=== PATIENT | female | born 1945 | race Caucasian/White ===

== ENCOUNTER 2016-12-21 09:30 | Inpatient (IN) | payer MEDICARE, OTHER ==
[~2016-12-21] VITALS: Ht 175.3 cm; Wt 63.9 kg
--- NOTE | ~2016-12-21 | ECH ---
Transthoracic Echocardiography Report (TTE) Demographics Patient Name MESERET MCDOWELL Date of Study 12/21/2016 Patient Number [id number] Visit Number [id number] Date of 1945 Room Number 301 Accession Number [id number] Gender Female Age 71 year(s) Referring King Richmond Chiu MD Volunteer Services Supervisor Stacie Casper [facility] Physician Kirill Yu MD Physician Interpreting Marline KAY [facility] Physician Petey Supervising Ordering Physician Kirill Yu MD, MD/P Nurse Stress Graduate Advisor Conclusions Contractility Score Summary Normal Left Ventricular contractility was noted. Summary Technically adequate exam. The estimated left ventricular ejection fraction is 65%. Mild left ventricular hypertrophy. Diastolic assessment reveals Grade I diastolic dysfunction. The left atrium is at upper limits of normal size by LA volume index measurement. The right atrium is mild to moderately dilated. Mild mitral regurgitation by color Doppler. The mitral regurgitation jet is anteriorly directed. Tricuspid regurgitation is eccentric and at least mild-moderate. There is moderate pulmonary hypertension. The pulmonary pressure (RVSP) is 46 mmHg. Recommendation The patient will be given the results of this study by the physician who ordered the exam. Procedure Type of Study TTE procedure:Echo Complete SF. Procedure Date Date: 12/21/2016 Start: 01:37 PM Technical Quality: Adequate visualization Indications:Shortness of breath, Elevated Troponin, Cardiomegaly and Pleural effusion. Appropriate Use Criteria: 9 Height: 66 inches Weight: 165.35 pounds BSA: 1.84 m Rhythm: Sinus with bundle branch block HR: 87 bpm BP: 164/96 mmHg M-Mode/2D Measurements LV Diastolic Dimension: 4.15 cm LV Systolic Dimension: 2.41 cm LV Septum Diastolic: 1.19 cm LV PW Diastolic: 1.24 cm AO Root Dimension: 2.66 cm Cardiac Output: 6.24 l/min LA Dimension: 3.79 cm Cardiac Index: 3.39 l/min*m RV Diastolic Dimension: 3.4 cm LA volume index: 34 ml/m LVOT: 1.95 cm LVOT VTI: 24.01 cm RV Base: 3.56 cm LV Stroke volume: 71.67 ml RV Mid: 2.4 cm LV Stroke volume index: 38.95 ml/m RV Length: 5.09 cm Doppler Measurements AV Peak Velocity: 1.3 m/s MV Peak E-Wave: 0.52 m/s AV Peak Gradient: 6.76 mmHg MV Peak A-Wave: 0.86 m/s AV Mean Gradient: 3.24 mmHg MV E/A Ratio: 0.61 LVOT Peak Velocity: 1.12 m/s MV P1/2t: 42.5 msec AV Area (Continuity):3 cm MV Deceleration Time: 161.6 msec TR Velocity:3.21 m/s MV Area (PHT): 5.18 cm TR Gradient:41.23 mmHg PV Peak Velocity: 0.86 m/s Estimated RAP:5 mmHg PV Peak Gradient: 2.93 mmHg Estimated RVSP: 46 mmHg Estimated PASP: 46.23 mmHg RA Area: 22.61 cm Findings Left Ventricle The left ventricle is normal in size . Mild left ventricular hypertrophy. Diastolic assessment reveals Grade I diastolic dysfunction. Right Ventricle Normal right ventricle structure and function. Left Atrium The left atrium is at upper limits of normal size by LA volume index measurement. Right Atrium The right atrium is mild to moderately dilated. Mitral Valve Normal mitral valve structure and function. Mild mitral regurgitation by color Doppler. The mitral regurgitation jet is anteriorly directed. Aortic Valve Normal aortic valve structure and function. Tricuspid Valve Normal tricuspid valve structure and function. Tricuspid regurgitation is eccentric and at least mild-moderate. There is moderate pulmonary hypertension. The pulmonary pressure (RVSP) is 46 mmHg. Pulmonic Valve Normal pulmonic valve structure and function. Pericardial Effusion No evidence of pericardial effusion. Miscellaneous Visualized portions of the aortic root and ascending aorta appear normal in size. Contractility Score LV regional wall motion:(0-Non visualized 1-Normal 2-Hypokinesis 3-Akinesis 4-Dyskinesis 5-Aneurysm) Signature
--- NOTE | 2016-12-23 07:11 | CO ---
ADMIT: 12/21/2016 RM/LOC: 301 [facility] MR#: [id number] [address] MESERET MCDOWELL [address] [place] [address] Consultation SEX: F AGE: 71 : 1945 DATE OF CONSULTATION: 12/21/2016 ATTENDING PHYSICIAN: Marino Roy CONSULTING PHYSICIAN: Petey Garcia MD REASON FOR CONSULTATION: Respiratory failure. HISTORY OF PRESENT ILLNESS: Meseret Mcdowell is a 71-year-old female with a history of COPD and ongoing tobacco abuse. She was brought into the emergency room this morning about 9:30, really complained of periumbilical pain. She has had an ultrasound of the abdomen for that, which has been unrevealing. As the day progressed, she became increasingly short of breath and was actually fairly obtunded earlier. She was placed on BiPAP for a pH of 7.22 and a pCO2 of 86. Chest x-ray reveals right lower lobe pneumonia with congestive changes and she has seen Cardiology and been given some Lasix. The patient is not able to provide any history at the present time. PAST MEDICAL HISTORY: Includes ongoing tobacco abuse, hypertension, COPD. ALLERGIES: NONE KNOWN. SOCIAL HISTORY: She has essentially smoked her entire life and she continued up until the admission to the hospital. FAMILY HISTORY: Significant for coronary artery disease. CURRENT MEDICATIONS: Include: 1. Spiriva. 2. Aspirin. 3. Toprol. 4. Pepcid. 5. Rocephin. 6. Tylenol. 7. Lasix. REVIEW OF SYSTEMS: Unable to be obtained as the patient is not responsive at this time. PHYSICAL EXAMINATION: VITAL SIGNS: Blood pressure 149/78, heart rate 90, respiratory rate 12, she is afebrile. GENERAL: The patient is sleepy, but she will awaken to command. HEENT: Pupils are reactive. NECK: Supple. HEART: Regular rate and rhythm. LUNGS: Notable for wet crackles throughout. ABDOMEN: Soft. There is no rigidity and no tenderness on abdominal exam. EXTREMITIES: 2+ edema bilaterally. MUSCULOSKELETAL: Deferred. ADMIT: 12/21/2016 RM/LOC: 301 [facility] MR#: [id number] [address] MESERET MCDOWELL [address] [place] [address] Consultation SEX: F AGE: 71 : 1945 NEUROLOGIC: Notable for being somnolent at this time. LABORATORY DATA: PH 7.23, pCO2 is 86, PO2 is 79. White count 6, hemoglobin 17, hematocrit 50, platelets are 329. Sodium 129, potassium 4.9, chloride 90, CO2 of 37, BUN is 15, creatinine is 0.9. Troponin is 1.2. BNP is 3700. IMAGING: Chest x-ray, personally reviewed, reveals right lower lobe infiltrate. Cardiomegaly and some congestive changes. There is at least a small effusion on the right as well. IMPRESSION: 1. Acute congestive heart failure, unknown if systolic or diastolic, but we are waiting on an echo. 2. Right lower lobe community-acquired pneumonia. 3. Hypercapnic respiratory failure. 4. Ongoing tobacco abuse. 5. Abdominal pain. 6. Non ST-elevation myocardial infarction. 7. Polycythemia. PLAN/RECOMMENDATIONS: At this point, I am going to cautiously continue BiPAP. I certainly think it is possible that she will require endotracheal intubation. I am going to broaden antibiotic coverage for an ICU pneumonia. I do agree with Lasix as prescribed by Dr. Hughes. I think her pulmonary exam is very wet. We will place an arterial line because we are going to be taking multiple blood gases. We will check a flu swab and have a PICC line placed as well. I am going to start her on nebulizers and steroids as well. She is critically ill at this time and further care will be dictated by her hospital course. Petey Garcia MD/ jimena JOB #: [id number] CC: Marino Roy, Attending Physician Marino Roy, Family Physician
--- NOTE | 2016-12-27 10:31 | ER ---
ADMIT: 12/21/2016 RM/LOC: 301 [facility] MR#: [id number] [address] MESERET MCDOWELL [address] [place] [address] Emergency Room Report SEX: F AGE: 71 : 1945 DATE: 12/21/2016 CHIEF COMPLAINT: Today is shortness of breath and abdominal pain. HISTORY OF PRESENT ILLNESS: This is a pleasant 71-year-old, white female, who comes to us with about 2 weeks duration of increasing shortness of breath and abdominal pain. The patient states she was in to see Dr. Hernandez and got a pneumococcal vaccine about 14 days ago and ever since then, she has had increasing shortness of breath. States she has been using some Aleve and ibuprofen for pain. She has been dealing with some epigastric burning pain which she states feels like stomach ulcers that she has had in the past. States she has not been taking her hydrochlorothiazide as her script ran out. Admits to some nausea, diarrhea, loss of appetite, and chest pains, primarily epigastric radiating up. PAST MEDICAL HISTORY: Hypertension and COPD. She is on multiple inhalers for COPD. Has no known cardiac disease. No history of heart failure, was hospitalized in 2006 for a cardiac rule out, which was unremarkable. SOCIAL HISTORY: She does smoke about 2 cigarettes per day. ALLERGIES: HAS AN ALLERGY TO EGG WHITES. COURSE IN THE EMERGENCY ROOM: The patient was initially brought back to the room by nursing, found to be saturating 55% on room air. She was placed on nasal cannula and a non-rebreather until she was back in the 90s. The patient was seen and examined. She was in moderate amount of distress. She was alert. She does have bilateral wheezes with some faint rhonchi in the right lower lung base. Heart is regular. No gallop, murmur, or rub. She does have some epigastric tenderness. She is slightly diaphoretic. She has 4+ pitting edema in the lower extremities bilaterally. We did give her Zofran 4 mg IV, Lasix 40 IV as well as Solu-Medrol 125 mg IV. Blood pressures in the 200s, she was given 0.4 of nitroglycerin sublingually, brought her pressures down to the 170s. She was also ran through the sepsis routine. Laboratory shows sodium 129, potassium 4.2, CO2 of 37, BUN 15, creatinine 0.9, albumin is 1.9. Liver enzymes normal. She does have an elevated troponin at 1.180 and elevated BNP at 3758. Lactic was 0.9. White count 5.9, hemoglobin 16.9, hematocrit 50.2, and platelets 329. Urine has 3+protein, but no sign of acute infection. EKG was obtained, with no ST-T or Q wave abnormalities. I did phone Dr. Roy for city call who will admit this patient. ADMIT: 12/21/2016 RM/LOC: 301 [facility] MR#: [id number] [address] MESERET MCDOWELL [address] [place] [address] Emergency Room Report SEX: F AGE: 71 : 1945 IMPRESSION: 1. Elevated troponin. 2. Acute respiratory failure. 3. Community-acquired pneumonia. 4. Chronic obstructive pulmonary disease. 5. Congestive heart failure. 6. Epigastric pain. 7. History of hypertension. 8. Tobacco abuse. DISPOSITION: The patient will be admitted to the ICU in the care of Dr. Roy. She was discharged to the ICU in guarded condition. MARIELLA Duenas / Wily Arechiga MD / modl JOB #: [id number] CC: Marino Roy MD, Attending Physician Marino Roy MD, Family Physician
--- NOTE | 2016-12-27 15:08 | CO ---
ADMIT: 12/21/2016 RM/LOC: 301 [facility] MR#: [id number] [address] MESERET MCDOWELL [address] [place] [address] Consultation SEX: F AGE: 71 : 1945 DATE OF CONSULTATION: 12/21/2016 ATTENDING PHYSICIAN: Marino Roy CONSULTING PHYSICIAN: Dafne Hughes MD REASON FOR CONSULTATION: Abnormal troponin. HISTORY OF PRESENT ILLNESS: Ms. Mcdowell is a 71-year-old white female, who is a former patient of [facility]. Her mental status right now is somewhat compromised, so she is unable to give a good history. History is obtained by her son. He notes that over the past few days, she has been more orthopneic, complaining of shortness of breath and edema. She has been denying any chest pain. He notes she has been coughing. She does continue to smoke. PAST MEDICAL HISTORY: Pertinent for COPD, history of abnormal EKG portion of a stress test, tobacco use, GERD, and hypertension. MEDICATIONS: She is currently on Rocephin, she was given IV Lasix in the ER. ALLERGIES: LATEX. FAMILY HISTORY: There is no family history of premature coronary artery disease. Father with a bypass graft in his 50s. Son with a stent, he is a patient of [facility]. SOCIAL HISTORY: She is . Two children. A son is present. She is a smoker. Retired. REVIEW OF SYSTEMS: Unable to obtain due to her altered mental status. PHYSICAL EXAMINATION: VITAL SIGNS: Her blood pressure is 149/78 with a pulse rate in the 90s. Her temp is 97.6. Her weight today is 160 pounds. GENERAL: She is a white female, lethargic, slow to arouse. NECK: Shows brisk carotid upstrokes. Minimal JVD. HEART: Regular rhythm and rate and distant. LUNGS: Distant breath sounds. ABDOMEN: Soft, nontender, nondistended. Bowel sounds are present. EXTREMITIES: Show no cyanosis, clubbing with 2+ pretibial edema bilaterally. MUSCULOSKELETAL AND NEUROLOGIC EXAM: Unable to be performed because of her altered mental status. ADMIT: 12/21/2016 RM/LOC: 301 [facility] MR#: [id number] [address] MESERET MCDOWELL [place] [address] [place] [address] Consultation SEX: F AGE: 71 : 1945 LABORATORY AND ANCILLARY DATA: Show a pH of 7.27, pCO2 of 87, and pO2 of 82. Sodium is 129, potassium 4.9, BUN of 15, and creatinine is 0.9. CK is 171, MB 3.7, troponin 1.18. ProBNP is 3758. White blood cell count is 5.9, hemoglobin 16.9, with a platelet count of 329,000. EKG shows sinus rhythm. ASSESSMENT/PLAN: Acute congestive heart failure, undetermined etiology. Hypoxic respiratory failure, hypercapnia, abnormal troponin, chronic obstructive pulmonary disease, tobacco use. Suspect abnormal troponin likely due to acidosis and hypoxia, question even pneumonia and COPD exacerbation. We will await echocardiogram results, but we will give an additional 80 mg IV Lasix now. Pulmonary was consulted. We will await their recommendations. Dafne Hughes MD/ jimena JOB #: [id number] CC: Marino Roy, Attending Physician Marino Roy, Family Physician
[2016-12-30] MEDS ORDERED: PRILOSEC DPS20 MG PO (13:34)
[2016-12-30] MEDS ORDERED: ASA CHILDREN'S81 MG PO (13:34)
[2016-12-30] MEDS ORDERED: HYDROCHLOROTHIA25 MG PO (13:34)
[2016-12-30] MEDS ORDERED: DAILY MULTIPLE1 EAC1 PO (13:34)
[2016-12-30] MEDS ORDERED: TOPROL XL100 MG PO (13:34)
[2016-12-30] MEDS ORDERED: PROAIR RESPICL90 MCG IH (13:35)
[2016-12-30] MEDS ORDERED: SPIRIVA18 MCG PO (13:35)
[2016-12-30] MEDS ORDERED: PROVENTIL2.5 MG/3 M IH (13:36)
[2016-12-30] MEDS ORDERED: DELTASONE DPS10 MG PO (13:36)
[2016-12-30] MEDS ORDERED: MAG-OX400 MG PO (13:36)
[2016-12-30] MEDS ORDERED: LEVAQUIN DPS500 MG PO (13:36)
[2016-12-30] MEDS ORDERED: CARDIZEM CD180 MG PO (13:37)
--- NOTE | 2017-01-24 10:33 | HP ---
ADMIT: 12/21/2016 RM/LOC: 301 [facility] MR#: [id number] [address] MESERET MCDOWELL [address] [place] [address] History and Physical SEX: F AGE: 71 : 1945 DATE OF SERVICE: CHIEF COMPLAINT: Weakness. CLINICAL HISTORY: Meseret came into the emergency room, brought in by her son with a history of progressive weakness over the last 3 weeks. She states that this all commenced with the onset of a pneumonia vaccination that she got at [facility]. This was after she apparently called in for some medication through her regular doctor, Dr. Shani Hernandez. Subsequent to that time, she felt like she went downhill. She started noticing increasing pedal edema, increasing work of breathing and appetite tailed off. Associated with such was some intermittent bouts of diarrhea that she has had off and on through life. She had not eaten much the last couple of 3 days, had stopped taking her medications and noticed increasing edema and could not get up very much. Her son brought her to the emergency room. PAST MEDICAL HISTORY: Includes no prior operations. She had a prior evaluation several years ago. She cannot remember exactly when she underwent stress test. She reports that all of those tests were negative. She has been a lifelong smoker. She has had episodes of bronchitis. She is on nebulizer treatments at home, but has not been on any steroids and has continued to smoke up through this morning. She was evaluated in the emergency room, where a chest x-ray was reported as pneumonia. The emergency room doctor felt this was most consistent with congestive failure and has given her diuretics, but in my review, she clearly has a right lower lobe pneumonia concomitantly. ALLERGIES: NONE KNOWN WITH THE EXCEPTION OF POSSIBLE PNEUMOVAX. MEDICATIONS: Please see current list including nebulized treatments with: 1. Ventolin. 2. Spiriva. FAMILY HISTORY: Father had at 58 of coronary artery disease. Mother with breast cancer. She has a daughter with breast cancer. REVIEW OF SYSTEMS: She has not had any hemoptysis. She has never had any history of deep vein thrombosis or pulmonary emboli. Denies any specific chest pain nor has she had any other pain at all. In fact, denies any discomfort. She noticed edema involving her legs, but has not had any specific muscular weakness, just generalized weakness from her illness. She has noticed that she is itching a great deal and has had broken out in an eczema-type rash on her upper extremities. PHYSICAL EXAMINATION: GENERAL: Reveals a white female who is able to give ADMIT: 12/21/2016 RM/LOC: 301 [facility] MR#: [id number] [address] MESERET MCDOWELL [address] [place] [address] History and Physical SEX: F AGE: 71 : 1945 reasonable history. There is some cyanosis to the lips and finger tips. Ventimask is in place. HEAD AND NECK: Otherwise unremarkable. HEART: Regular with a pulse rate at 100. ABGs have been ordered, but are not done yet. LUNGS: Coarse rhonchi throughout and rales at the bases bilaterally. ABDOMEN: Benign. EXTREMITIES: Showed 3+ pedal edema. She is able to give a coherent history and has no focal neurological findings. LABORATORY AND IMAGING DATA: Chest X-RAY demonstrates right lower lobe pneumonia and congestive heart failure. BNP is elevated significantly. The rest of her chemistry profile is unremarkable except for some mild hyponatremia at 129. EKG shows incomplete left bundle branch block. IMPRESSION: 1. Pneumonia, right lower lobe. 2. Congestive heart failure. 3. Elevated troponin. 4. Mild hypercalcemia. 5. Mild hyponatremia. 6. Family history of coronary artery disease. 7. Family history of breast cancer. 8. Smoking history. 9. History of prior cardiac evaluation with a negative stress test. TREATMENT: Certainly, she is at high risk for progressive respiratory failure. This coupled with her elevated troponin. Certainly dictates intensive care treatment and evaluation. Likewise, set of ABGs will be necessary as I suspect she is a CO2 retainer. We will see how this evolves, but over the last couple of days, she has gotten quite a bit weaker, had increasing edema and obviously would not be here except she is clinically deteriorating. Marino Roy MD/ jimena JOB #: [id number] CC: Marino Roy, Attending Physician Marino Roy, Family Physician
--- NOTE | 2017-01-31 13:34 | DS ---
ADMIT: 12/21/2016 RM/LOC: 630 [facility] MR#: [id number] [address] MESERET MCDOWELL [address] [place] [address] Discharge Summary SEX: F AGE: 71 : 1945 ADMISSION DATE: 12/21/2016 DISCHARGE DATE: 12/29/2016 DISMISSAL DIAGNOSES: 1. Pneumonia, right lower lobe. 2. Respiratory failure. 3. Advanced chronic obstructive lung disease. 4. Paroxysmal atrial fibrillation. 5. Hypertension. 6. Xea-FC-oxgccakij myocardial infarction. 7. Cor pulmonale. 8. Hypercalcemia and hyponatremia, resolved. 9. Family history of coronary artery disease. 10.Chronic smoking. CLINICAL HISTORY: Meseret Mcdowell came in with what she describes as a 6 weeks illness commencing with a pneumonia vaccination at one of the local pharmacies. She blamed this upon her progressive respiratory failure, but when she presented to the emergency room, she could give a good history but obviously was very short of breath and had evidence of cyanosis. She had right lower lobe pneumonia, marked edema, cor pulmonale, and CO2 retention. In spite of IV Solu-Medrol and respiratory support, she slowly and steadily progressed to respiratory failure. Initially treated with BiPAP and ultimately intubated and treated with ventilator therapy. Cultures of blood, urine, and sputum all showed no growth or normal agapito. She had an elevated troponin upon presentation consistent with a non STEMI infarct. She has a strong family history of coronary artery disease and has risk factors, but previously had a negative stress test. EKGs were unremarkable, but she developed paroxysmal atrial fibrillation with short burst requiring Cardizem. Throughout her hospital stay, she was followed by Cardiology, Pulmonary Medicine, and myself. Post extubation, she made an uneventful recovery, but obviously has a chronic, long-standing obstructive bronchitis related to her smoking and a harsh, persistent cough. She required oxygen upon dismissal, will continue with her home nebulizer treatment as well as prednisone at 10 mg p.o. b.i.d. to be tapered at a later date and to finish Levaquin 500 mg daily for 7 additional days for her right lower lobe pneumonia. The day of dismissal, her BNP was normal. Her chemistries were normal. Her CBC showed a hemoglobin of 14.8, hematocrit of 44, white count of 13.3, all quite stable. A chest x-ray was rotated and poor technique, but suggested some persistent right lower lobe atelectatic changes. ADMIT: 12/21/2016 RM/LOC: 630 [facility] MR#: [id number] [address] MESERET MCDOWELL [address] [place] [address] Discharge Summary SEX: F AGE: 71 : 1945 MEDICATIONS UPON DISMISSAL: Include: 1. O2, 2 L nasal prong at bedtime and at rest and 3 L with activity by portable oxygen. 2. Nebulized treatment with albuterol t.i.d. 3. Spiriva 18 mcg daily. 4. Toprol 100 mg p.o. daily. 5. Cardizem CD 180 mg daily. 6. Multivitamin daily. 7. Mag-Ox 400 mg b.i.d. 8. Levaquin 500 mg daily for 7 days. 9. HydroDIURIL 25 mg daily. 10.Prednisone 10 mg b.i.d. 11.Aspirin 81 mg daily. 12.Ventolin HFA 1 puff q.i.d. p.r.n. 13.Omeprazole 40 mg daily. She reluctantly accepted her home oxygen prescription. She will see Dr. Shani Hernandez on Tuesday or Tuesday of the following week for CBC, BMP, and chest x-ray and she will follow up with [facility] Cardiology for outpatient stress test and with Pulmonary Medicine as well. She was dismissed markedly improved with ongoing advanced lung disease, however. Suspected underlying coronary artery disease is likely. Marino Roy MD/ jimena JOB #: [id number] CC: Marino Roy MD, Attending Physician Marino Roy MD, Family Physician Shani Hernandez MD . [facility] Petey Garcia MD
== END 2016-12-29 15:15 | disposition home or self-care (01) | DRG 208 ==
LOC: ER 09:30 → 3ICU 10:20 → 4PCU 12-24 13:07 → 5MS 12-26 17:33 → 6PED 12-27 18:11
PROVIDERS: ADMIT Internal Medicine
PROC: 02HV33Z Insertion of Infusion Device into Superior Vena Cava, Percutaneous Approach (ICD-10-PCS; principal; 2016-12-21)
PROC: 5A1945Z Respiratory Ventilation, 24-96 Consecutive Hours (ICD-10-PCS; 2016-12-21)
PROC: 03HY32Z Insertion of Monitoring Device into Upper Artery, Percutaneous Approach (ICD-10-PCS; 2016-12-21)
PROC: 0BH17EZ Insertion of Endotracheal Airway into Trachea, Via Natural or Artificial Opening (ICD-10-PCS; 2016-12-21)
DX: J44.0 Chronic obstructive pulmonary disease with (acute) lower respiratory infection (principal); I21.4 Non-ST elevation (NSTEMI) myocardial infarction; I50.31 Acute diastolic (congestive) heart failure; J18.1 Lobar pneumonia, unspecified organism; J96.10 Chronic respiratory failure, unspecified whether with hypoxia or hypercapnia; J96.01 Acute respiratory failure with hypoxia; J96.02 Acute respiratory failure with hypercapnia; I11.0 Hypertensive heart disease with heart failure; E87.1 Hypo-osmolality and hyponatremia; I27.81 Cor pulmonale (chronic); J44.1 Chronic obstructive pulmonary disease with (acute) exacerbation; I48.0 Paroxysmal atrial fibrillation; E83.52 Hypercalcemia; K29.70 Gastritis, unspecified, without bleeding; D75.1 Secondary polycythemia; F17.210 Nicotine dependence, cigarettes, uncomplicated; R79.89 Other specified abnormal findings of blood chemistry; K21.9 Gastro-esophageal reflux disease without esophagitis; Z82.49 Family history of ischemic heart disease and other diseases of the circulatory system

== ENCOUNTER → 2017-01-03 | Outpatient (CLI) | payer MEDICARE, OTHER ==
[~2017-01-03] MED LIST: ASA CHILDREN'S81 MG PO; CARDIZEM CD180 MG PO; DAILY MULTIPLE1 EAC1 PO; DELTASONE DPS10 MG PO; HYDROCHLOROTHIA25 MG PO; LEVAQUIN DPS500 MG PO; MAG-OX400 MG PO; PRILOSEC DPS20 MG PO; PROAIR RESPICL90 MCG IH; PROVENTIL2.5 MG/3 M IH; SPIRIVA18 MCG PO; TOPROL XL100 MG PO
== END | disposition home or self-care (01) ==
LOC: RAD.S 14:17
DX: J18.9 Pneumonia, unspecified organism (principal); R91.8 Other nonspecific abnormal finding of lung field; Z45.2 Encounter for adjustment and management of vascular access device

== ENCOUNTER → 2017-01-14 | Outpatient (CLI) | payer MEDICARE, OTHER | END | disposition home or self-care (01) | LOC: RAD.S 01-11 13:00 | DX: J18.9 Pneumonia, unspecified organism (principal) ==

== ENCOUNTER → 2017-01-19 | Outpatient (CLI) | payer MEDICARE, OTHER | END | disposition home or self-care (01) | LOC: RESC 09:00 | DX: R06.02 Shortness of breath (principal); J98.8 Other specified respiratory disorders; R94.2 Abnormal results of pulmonary function studies ==